=== PATIENT | female | born 1950 | race Two or more races ===

== ENCOUNTER 2017-11-20 13:00 | Emergency (ER) | payer SELFPAY ==
[~2017-11-20] VITALS: Ht 157.5 cm; Wt 83.9 kg
--- NOTE | 2017-11-20 13:44 | Emergency Room Report ---
History of Present Illness General Chief Complaint: Earache Source: Patient, Family Member Present Illness HPI 67 yo female patient presents to ER complaining of SIMS and ear pain x1 year. Reports SIMS comes and goes and is unilateral and over entire head. Denies neck pain. Complains of ear fullness and ache prior to onset of SIMS; denies vision changes, vision loss. Denies eye pain, denies pain with eye movement, denies FB sensation. Denies vertigo, dizziness. Reports decreased hearing in left ear. Denies change in symptoms or onset of symptoms with change in position. Reports has not been seen by primary care provider for treatment of symptoms. Denies worsening of symptoms with change in position. Patient denies dysuria, reports frequency. Denies hematuria or vaginal discharge. Patient denies fever, chest pain, SOB, rash. Denies contacts with similar symptoms. Denies incontinence or retention. Reports hx of DM and HTN. Allergies: Coded Allergies: No Known Allergies (Unverified , 11/20/17) Patient History Past Medical History: see triage record Last Menstrual Period: na Reviewed Nursing Documentation: PMH: Agreed; PSxH: Agreed Nursing Documentation-PMH Past Medical History: No Stated History Review of Systems All Other Systems: negative except mentioned in HPI Physical Exam Vital Signs Date Time Temp Pulse Resp B/P (MAP) Pulse Ox O2 Delivery O2 Flow Rate FiO2 11/20/17 13:13 99.0 54 20 146/78 98 Room Air 99.0 Sp02 EP Interpretation: reviewed, normal General Appearance: well appearing, no apparent distress, alert, GCS 15, non- toxic Head: normocephalic, atraumatic, other - no edema or erythema of mastoid process bilaterally Eyes: bilateral eye normal inspection, bilateral eye PERRL ENT: hearing grossly normal, normal pharynx, no angioedema, normal voice, TMs + canals normal - TM intact, uvula midline, moist mucus membranes, other - cerumen left ear Neck: full range of motion Respiratory: lungs clear, normal breath sounds, no rhonchi, no respiratory distress, no accessory muscle use, no wheezing, speaking full sentences Cardiovascular #1: regular rate, rhythm, no edema Gastrointestinal: non tender, soft, no mass, non-distended, no guarding, no rebound Genitourinary: no CVA tenderness Musculoskeletal: back normal, digits/nails normal, gait/station normal, normal range of motion, non-tender, no calf tenderness Neurologic: alert, oriented x3, responsive, 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 Paul is my supervising Physician whom patient management has been discussed with. Diagnostic Impression: Primary Impression: Head ache Additional Impressions: Elevated blood pressure reading Excessive cerumen in left ear canal Tinnitus ER Course Pt presents to ED c/o headache and earache x1 year. DDX considered but are not limited to migraine, cluster SIMS, tension SIMS, meningitis, ICH, meningitis, HTN, influenza, UTI. Due to onset of sx and patient age, will order CT head. Negative Brudzinski, Negative Kernig, low suspicion for meningitis. VITAL SIGNS are WNL, patient is afebrile. Mild elevation of blood pressure followup with primary care provider for further diagnosis and treatment. Ordered UA, Metoclopramide, Benadryl and CT head. ER COURSE UA negative, no nitrites, no leukocyte esterase, negative for UTI. Discussed results with patient. CT head shows no acute disease. Followup with PCP for referral to neuro and MRI imaging as needed at that time. Provided with copy of CT report. Excessive cerumen in left ear. Ear lavage performed in ER with normal saline and hydrogen peroxide ER. Cerumen still present. No pain with ear pulling, no erythema in canal. Discharge with Debrox. Informed patient increased cerumen may be cause of symptoms. Instructed to followup with PCP and discuss referral to ENT for further treatment and referral. Informed patient symptoms consistent with possible Migraine, need followup with primary care provider and referral to neuro for further treatment. Patient reports symptoms mildly improved since arrival to ER. Patient is AOx3, neurologically intact, nontoxic appearing, and ambulatory. Informed patient and family cannot treat and monitor chronic conditions in the ER such as DM and HTN. Needs to followup with primary care provider. DISCHARGE: -Rx provided Tylenol -Rx provided for Debrox At this time pt is stable for d/c to home. Patient is resting comfortably, in no acute distress, nontoxic appearing, talking and smiling. Will provide with patient care instructions and any necessary prescriptions. Patient to take medication as instructed. Care plan and follow-up instructions provided. Patient questions asked and answered. Patient instructed to follow-up with primary care provider in the next 3 days and discuss further referral with PCP to neurologist. ER precautions given. Patient instructed to return to ER immediately for any new or worsening of symptoms including but not limited to fever, neck stiffness , vision changes, and neurological symptoms. Labs Test 11/20/17 13:46 Urine Color Pale yellow Urine Appearance Clear Urine pH 7 (4.5-8.0) Urine Specific [place] 1.010 (1.005-1.035) Urine Protein Negative (NEGATIVE) Urine Glucose (UA) Negative (NEGATIVE) Urine Ketones Negative (NEGATIVE) Urine Occult Blood Negative (NEGATIVE) Urine Nitrite Negative (NEGATIVE) Urine Bilirubin Negative (NEGATIVE) Urine Urobilinogen Normal MG/DL (0.0-1.0) Urine Leukocyte Esterase Negative (NEGATIVE) CT/MRI/US Diagnostic Results CT/MRI/US Diagnostic Results : Imaging Test Ordered: CT head Impression Impression: Negative Last Vital Signs Date Time Temp Pulse Resp B/P (MAP) Pulse Ox O2 Delivery O2 Flow Rate FiO2 11/20/17 13:13 99.0 54 20 146/78 98 Room Air 99.0 Disposition: HOME, SELF-CARE Condition: Stable Scripts Aspirin/Acetaminophen/Caffeine (EXCEDRIN MIGRAINE CAPLET) 1 Each Tablet 1 EACH PO BID for 7 Days, #30 TAB Prov: Osmany Guillory 11/20/17 Carbamide Peroxide (DEBROX) 15 Ml Drops 5 DROP LEFT EAR TWICE A DAY for 4 Days, ML 0 Refills Prov: Osmany Guillory 11/20/17 Patient Instructions: Cerumen Impaction, Earache, General Headache Without Cause, [id number], Hypertension, [id number], Migraine Headache, [id number] , Tinnitus, Type 2 Diabetes Mellitus, Adult, [id number] Additional Instructions: Followup with primary care provider in 1-3 days for further diagnosis and treatment. Request referral to neurologist for SIMS. Request referral to ENT for cerumen impaction and ear pain. CT head negative for acute disease. Take medications as directed. Patient questions asked and answered. ER precautions given, patient instructed to return to ER immediately for any new or worsening of symptoms. Osmany Guillory 27, 2018 13:44
[2017-11-20 14:05] LABS: APPEARANCE,URINE CLEAR; BILIRUBIN, URINE NEGATIVE (NEGATIVE); COLOR,URINE PALE YELLOW; GLUCOSE, URINE (UA) NEGATIVE (NEGATIVE); KETONES,URINE NEGATIVE (NEGATIVE); LEUKOCYTE ESTERASE ,URINE NEGATIVE (NEGATIVE); NITRITE,URINE NEGATIVE (NEGATIVE); PH,URINE 7 (4.5-8.0); PROTEIN,URINE NEGATIVE (NEGATIVE); UROBILINOGEN,URINE NORMAL MG/DL (0.0-1.0)
--- NOTE | 2017-11-20 15:08 | Diagnostic Imaging Report ---
Indications: Headache Technique: Spiral acquisitions obtained through the brain. Angled axial and coronal 5 x 5 mm slices were reconstructed. Total dose length product 1400.72 mGycm. CTDI vol(s) 70.38 mGy. Dose reduction achieved using automated exposure control Comparison: None. Findings: No acute intracranial hemorrhage or edema. No mass effect nor midline shift. Normal borrego-white differentiation. Normal for age ventricles and extra-axial CSF spaces. Intact calvarium. Visualized orbits and sinuses are unremarkable. Impression: Negative The CT scanner at [facility] is accredited by the [employer] and the scans are performed using protocols designed to limit radiation exposure to as low as reasonably achievable to attain images of sufficient resolution adequate for diagnostic evaluation.
[2017-11-20] MEDS ORDERED: EXCEDRIN MIGRA1 EAC1 PO (15:28)
[2017-11-20] MEDS ORDERED: DEBROX15 M1 LEFT EAR (15:28)
[2017-11-20] MEDS ORDERED: Hydrogen Peroxide 473ml Bottle TOPIC ONE (15:45)
[2017-11-20 16:19] VITALS: BP 155/81
== END 2017-11-20 16:24 | disposition home or self-care (01) ==
LOC: EMR 13:55
DX: R51 Headache (principal); H61.22 Impacted cerumen, left ear; I10 Essential (primary) hypertension; E11.9 Type 2 diabetes mellitus without complications
CPT/HCPCS: 70450; 81003; 99284